=== PATIENT | female | born 1990 | race Two or more races ===

== ENCOUNTER 2024-09-29 13:39 | Emergency (ER) | payer OTHER, MEDICAID, SELFPAY ==
[2024-09-29 13:40] VITALS: BMI 29.2
[2024-09-29 13:49] VITALS: BP 131/88; PULSE 100; RESP 19; TEMP 36.9; O2SAT 98
--- NOTE | 2024-09-29 14:01 | XR_ITS ---
Examination: Complete OB ultrasound, less than 14 weeks, transabdominal Date and time of exam: September 29, 2024 1504 hours INDICATIONS: Pelvic cramping onset today Technique: Obstetrical ultrasound images less than 14 weeks performed via transabdominal imaging Findings: Uterus 13.8 x 5.0 x 7.3 cm Intrauterine gestational sac 1.3 cm correspondences 6 weeks 1 day gestational age No pole, no cardiac activity Right ovary 2.9 x 4.5 x 3.0 cm arterial flow Left ovary 3.3 x 1.9 x 3.0 cm arterial flow IMPRESSION: Intrauterine gestational sac corresponding to 6 week 1 day gestational age, no pole, no cardiac activity Recommend transvaginal pelvic sonography follow-up to assess for pole and cardiac activity.
[2024-09-29 14:22] LABS: Collection Type, Urine Clean Catch
[2024-09-29 14:32] LABS: Bilirubin,Urine Negative (Negative); Blood,Urine Negative (Negative); Clarity,Urine Clear (Clear/Hazy); Color,Urine Colorless (Lt Yel-Yel); Glucose, Urine Negative (Negative); Ketones,Urine Negative (Negative); Leukocyte Esterase,Urine Negative (Negative); Nitrite,Urine Negative (Negative); PH,Urine 6.5 (5.0-7.0); Protein,Urine Negative (Neg - Trace); RBC,Urine 1 /hpf (0-3); Specific Gravity,Urine 1.004 (1.001-1.035); Squamous Epithelial Cell,Urine < 1 /hpf (0-5); Urobilinogen,Urine Negative mg/dL (0.0-1.0); WBC,Urine 1 /hpf (0-5)
[2024-09-29 15:08] LABS: Basophils % (Auto) 0 % (0-2.5); Eosinophils % (Auto) 0 % (0-10); Hemoglobin 13.3 g/dL (12.0-16.0); Immature Granulocytes % (Auto) 1 % (0-0); Immature Granulocytes Auto 0.07 Thou/mm3 (0.00-0.00); Lymphocytes # (Auto) 1.2 Thou/mm3 (1.0-4.8); Lymphocytes % (Auto) 11 % (10-50); Mean Corpuscular Hemoglobin 30.9 pg (25.0-35.0); Mean Corpuscular Volume 88 fL (80-100); Monocytes # (Auto) 0.4 Thou/mm3 (0.0-0.8); Monocytes % (Auto) 3 % (0-12); Neutrophils # (Auto) 9.7 Thou/mm3 (1.8-7.7); Neutrophils % (Auto) 85 % (37-80); Nucleated Red Blood Cell % 0 /100 WBC (0); Platelet Count 223 Thou/mm3 (140-440); RDW Standard Deviation 42.6 fL (36.4-46.3); White Blood Count 11.4 Thou/mm3 (3.6-11.0)
[2024-09-29 15:37] LABS: Alanine Aminotransferase 13 U/L (10-49); Albumin, Serum 4.9 gm/dL (3.5-5.0); Albumin/Globulin Ratio 1.6 (1.2-2.2); Alkaline Phosphatase 75 U/L (46-116); Anion Gap 8 (7-16); Aspartate Amino Transferase 17 U/L (0-34); BUN/Creatinine Ratio 17 Ratio (12-20); Bilirubin,Total 0.3 mg/dL (0.3-1.2); Blood Urea Nitrogen 10 mg/dL (9-23); Calcium 9.9 mg/dL (8.3-10.6); Calcium (Corrected) 9.9 mg/dL (8.5-10.1); Carbon Dioxide 20.8 mMol/L (20.0-31.0); Chloride 106 mMol/L (98-107); Creatinine (Component) 0.6 mg/dL (0.6-1.3); Glucose 130 mg/dL (74-106); Osmolality,Calculated 271 (275-295); Potassium 3.6 mMol/L (3.4-5.1); Sodium 135 mMol/L (136-145); Total Protein 7.9 gm/dL (5.7-8.2); eGFR > 60 See Note
[2024-09-29 16:04] LABS: Beta HCG,Quantitative 11331 mIU/mL (<5.0)
--- NOTE | 2024-09-29 17:21 | EDNOTE_ITS ---
ED Abdominal Pain RME/HPI General Chief Complaint: Abdominal Pain Stated complaint: , unknown time, cramping, no bleeding Time seen by provider: 09/29/24 13:44 Arrival date/time: 09/29/24 13:39 34-year-old female with medical history significant for renal transplant presents the emergency department today stating that she tested positive for she does not know how far along she is patient reports cramping without bleeding Limitations: no limitations Related Data Home Medications ?Medication ?Instructions ?Recorded ?Confirmed mycophenolate sodium 180 mg 2 tab PO BID 03/04/18 01/05/20 tablet,delayed release tacrolimus 1 mg capsule, 3 mg PO BID 03/04/18 01/05/20 immediate-release prednisone 5 mg tablet 5 mg PO QDAY 01/04/20 01/05/20 Previous Rx's ?Medication ?Instructions ?Recorded levetiracetam 250 mg tablet 500 mg (2 x 250 mg) PO BID #60 tabs 01/07/20 levofloxacin 500 mg tablet 500 mg PO QDAY #3 tabs 01/07/20 nicotine 14 mg/24 hr daily 14 mg top QDAY #14 ea 01/07/20 transdermal patch cyclobenzaprine 5 mg tablet 5 mg PO TID PRN muscle spasm #30 04/04/24 tabs ibuprofen 600 mg tablet 600 mg PO Q6H #30 tabs 04/04/24 Allergies Allergy/AdvReac Type Severity Reaction Status Date / Time No Known Allergies Allergy Verified 04/04/24 11:22 Review of Systems Review of Systems Systems Reviewed: All systems reviewed, normal except as documented Constitutional Constitutional: Reports system reviewed and no additional complaints, except as documented, Denies fever(s) and Denies headache(s) Eyes Eyes: Reports system reviewed and no additional complaints, except as documented and Denies blurry vision ENT Ears, Nose, Mouth, and Throat: Reports system reviewed and no additional complaints, except as documented, Denies headache(s), Denies nasal congestion and Denies nasal discharge Cardiovascular Cardiovascular: Reports system reviewed and no additional complaints, except as documented, Denies chest pain and Denies dyspnea Respiratory Respiratory: Reports system reviewed and no additional complaints, except as documented, Denies chest congestion, Denies cough and Denies dyspnea Gastrointestinal Gastrointestinal: Reports system reviewed and no additional complaints, except as documented and Denies abdominal pain Genitourinary Genitourinary: Reports system reviewed and no additional complaints, except as documented, Denies dysuria and Reports other (Pelvic cramping) Integumentary/Breasts Skin/Breast: Reports system reviewed and no additional complaints, except as documented and Denies rash Neurologic Neurologic: Reports system reviewed and no additional complaints, except as documented, Reports as per HPI and Denies headache(s) Past Medical History Past Medical History NEUROLOGIC: Positive Seizures (Prior to kidney transplant) CARDIAC: Positive Cardiac Disorders and Hypertension; Negative Congestive Heart Failure RESPIRATORY: Negative Chronic Obstructive Pulmonary Disease (COPD) GENITOURINARY: Positive Genitourinary Disorders, Renal Disease and Dialysis (on HD for 4 years, beginning 2016) ENDOCRINE: Negative Endocrine Disorders, Diabetes Mellitus Type 1 or Diabetes Mellitus Type 2 OTHER HISTORY: Positive Blood Transfusions and Organ Transplant Surgical History SURGICAL: Positive Organ Transplant Social History SMOKING STATUS: Never smoker ED Exam General Limitations: Present no limitations General appearance: Present alert and in no apparent distress Head Head exam: Present atraumatic Eye Eye exam: Present normal appearance, PERRL and EOMI ENT ENT exam: Present normal exam, normal oropharynx and mucous membranes moist Neck Neck exam: Present normal inspection, full ROM and trachea midline Chest Chest inspection: Present normal inspection and symmetric chest wall rise Respiratory Respiratory exam: Present normal lung sounds bilaterally Cardiovascular Cardiovascular exam: Present regular rate, normal rhythm and normal heart sounds Abdominal Exam Abdominal exam: Present soft and normal bowel sounds Extremities Exam Extremities exam: Present normal inspection and full ROM Back Exam Back exam: Present normal inspection and full ROM Neurological Exam Neurological exam: Present alert, oriented X3 and CN II-XII intact Psychiatric Psychiatric exam: Present normal affect and normal mood Skin Skin exam: Present warm, dry, intact and normal color Course Quality Measures none Orders Category Date Time Status US OB <= 14 weeks fetus Stat Exams 09/29/24 14:01 Completed ABO/RH Type Stat Lab 09/29/24 14:23 Completed Beta HCG,Quantitative Stat Lab 09/29/24 14:23 Completed CBC Stat Lab 09/29/24 14:23 Completed Comprehensive Metabolic Panel Stat Lab 09/29/24 14:23 Completed UA [Urinalysis] Stat Lab 09/29/24 14:17 Completed Urine Culture Stat Lab 09/29/24 14:17 Received Vital Signs Vital signs: Vital Signs Temperature 98.4 F 09/29/24 13:49 Pulse Rate 100 09/29/24 13:49 Respiratory Rate 19 09/29/24 13:49 Blood Pressure 131/88 H 09/29/24 13:49 Pulse Oximetry (%) 98 09/29/24 13:49 Oxygen Delivery Method Room Air 09/29/24 13:49 O2 saturation 98% room air within normal limits Abdominal Pain MDM MDM Narrative MDM Narrative:: 34-year-old female with medical history significant for renal transplant presents the emergency department today stating that she tested positive for she does not know how far along she is patient reports cramping without bleeding Lab work and ultrasound obtained Patient reports no dysuria no back pain Explained to the patient that this is her baseline today and she needs to have a repeat hCG and ultrasound in 3 to 4 days Patient discharged home in no distress to follow-up with primary care doctor in the next 24 to 48 hours and for any worsening symptoms to return to the ER immediately Patient data External records reviewed:: [facility] previous records Clinical information provided by:: patient Social determinants that could affect healthcare access:: none Patient has the following chronic illnesses:: See history How is presenting disease/condition affected by chronic disease/condition?: uneffected by Evaluation data The following diagnostics were reviewed and interpreted by me:: lab results and radiology exam(s) Lab and/or radiology exams considered but not ordered:: Labs and radiology obtained Interpretation Summary: Reviewed by me Medications / Prescriptions Medications or Prescriptions considered but not ordered:: Given no meds Medication administrations:: Given no meds Consultations Consultation(s) initiated? (list below): No Diagnosis Differential diagnosis abdominal pain: abdominal pain, acute appendicitis, calculus of kidney, gastroenteritis and pancreatitis Most likely diagnosis given after review of the tests above:: Threatened Admission Indicated Admission indicated?: not indicated Admission Request Was there a request for admission?: No Disposition Plan Disposition Plan: Discharge Discharge Attestation Discharge Attestation: The patient and all family members were given an opportunity to ask questions and understood the discharge instructions. Discharge instructions specifically effects, indications for sooner follow up or return to the emergency department, and the expected course of current diagnosis. Patient condition: Stable Discharge Plan Plan Patient Disposition: HOME (Self Care) Disposition Comment: Stable Prescriptions/Referrals Prescriptions/Med Rec: No Action tacrolimus 1 mg Capsule 3 mg PO BID mycophenolate sodium 180 mg Tablet,Delayed Release (Dr/Ec) 2 tab PO BID prednisone 5 mg Tablet 5 mg PO QDAY nicotine 14 mg/24 hr Patch 24 Hour 14 mg top QDAY Qty: 14 0RF levetiracetam 250 mg Tablet 500 mg PO BID Qty: 60 0RF levofloxacin 500 mg tablet 500 mg PO QDAY Qty: 3 0RF ibuprofen 600 mg tablet 600 mg PO Q6H Qty: 30 0RF cyclobenzaprine 5 mg tablet 5 mg PO TID PRN (Reason: muscle spasm) Qty: 30 0RF Referrals: No Primary/Family,Physician [Primary Care Provider] - In 1 week Problem List Clinical Impression: , threatened Patient/Caregiver Discharge Instructions Additional Instructions: Please return in 3 days for repeat hCG level and have a transvaginal ultrasound for worsening symptoms return immediately Print Language: Upper Sorbian Stand Alone Forms: [place] Award Info., Patient Portal Info Letter PA/STAFF APPRAISER Supervising Physician PA/STAFF APPRAISER Supervising Physician: Dr. Dave
== END 2024-09-29 17:43 | disposition home or self-care (01) ==
PROVIDERS: Nurse Practitioner Primary Care; Emergency Provider Internal Medicine Rheumatology
DX: O20.0 Threatened abortion (principal); Z94.0 Kidney transplant status; Z3A.00 Weeks of gestation of pregnancy not specified
CPT/HCPCS: 36415; 76801; 80053; 81001; 84702; 85025; 86900; 86901; 87086; 99284

== ENCOUNTER 2025-07-17 21:39 | Emergency (ER) | payer MEDICAID, SELFPAY ==
[2025-07-17 21:40] VITALS: BMI 29.2
[2025-07-17 21:56] VITALS: BP 177/114; PULSE 84; RESP 20; TEMP 36.5; O2SAT 100
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
[2025-07-17 22:25] VITALS: BP 149/108
[2025-07-18] MEDS: SILVER SULFADIAZINE CR 1% 25 GM TUBE TOP
[2025-07-18] MEDS: HYDROcodone/APAP 5/325 TABLET 1 TAB PO (00:10)
== END 2025-07-18 00:15 | disposition home or self-care (01) ==
LOC: SERX 22:34
PROVIDERS: Emergency Provider Emergency Medicine
DX: T23.202A Burn of second degree of left hand, unspecified site, initial encounter (principal); T31.0 Burns involving less than 10% of body surface; X11.8XXA Contact with other hot tap-water, initial encounter
CPT/HCPCS: 99284; A9270